=== PATIENT | female | born 1990 | race Caucasian/White ===

== ENCOUNTER → 2016-07-06 | Outpatient (REF) | payer BC | LOC: M LAB REF 17:02 | PROVIDERS: ATTEND Obstetrics & Gynecology | DX: Z12.4 Encounter for screening for malignant neoplasm of cervix (principal) ==

== ENCOUNTER → 2016-09-04 | Outpatient (REF) | payer BC | LOC: M LAB REF 17:18 | PROVIDERS: ATTEND Physician Assistant | DX: J06.9 Acute upper respiratory infection, unspecified (principal) ==

== ENCOUNTER 2017-02-22 14:45 | Outpatient (CLI) | payer BC ==
[~2017-02-22] VITALS: Ht 154.9 cm; Wt 84.5 kg
[2017-02-22] MEDS ORDERED: IBUP1TAB7 PO (15:56)
[2017-02-22] MEDS ORDERED: COPA1INJ SC (15:58)
[2017-02-22] MEDS ORDERED: methylPREDNISolone 1,000 MG, VIAL MATE ADAPTER 1 EACH in D5W 250 ML IV ONE (18:00)
== END 2017-02-22 16:50 | disposition home or self-care (01) ==
LOC: M INFU 14:45
PROVIDERS: ATTEND Internal Medicine
DX: G35 Multiple sclerosis (principal); Z79.899 Other long term (current) drug therapy
CPT/HCPCS: 96365; J2930

== ENCOUNTER 2017-02-23 14:59 | Outpatient (CLI) | payer BC ==
[~2017-02-23 14:59] MED LIST: COPA1INJ SC; IBUP1TAB7 PO; methylPREDNISolone 1,000 MG, VIAL MATE ADAPTER 1 EACH in D5W 250 ML IV ONE
== END 2017-02-23 16:30 | disposition home or self-care (01) ==
LOC: M INFU 14:59
PROVIDERS: ATTEND Psychiatry & Neurology Neurology
DX: G35 Multiple sclerosis (principal); Z79.899 Other long term (current) drug therapy
CPT/HCPCS: 96365; J2930

== ENCOUNTER 2017-02-24 13:52 | Outpatient (CLI) | payer BC ==
[~2017-02-24 13:52] MED LIST changes: -methylPREDNISolone 1,000 MG, VIAL MATE ADAPTER 1 EACH in D5W 250 ML IV ONE
[2017-02-24 14:00] VITALS: BP 143/85
[2017-02-24] MEDS ORDERED: methylPREDNISolone 1,000 MG, VIAL MATE ADAPTER 1 EACH in D5W 250 ML IV ONE (14:30)
== END 2017-02-24 15:45 | disposition home or self-care (01) ==
LOC: M OPCLIPED 13:52 → M PED 13:55 → M OPCLIPED 15:45
PROVIDERS: ATTEND Psychiatry & Neurology Neurology
DX: G35 Multiple sclerosis (principal); Z79.899 Other long term (current) drug therapy
CPT/HCPCS: 96374; J2930

== ENCOUNTER 2017-02-25 13:48 | Outpatient (CLI) | payer BC ==
[2017-02-25 14:15] VITALS: BP 127/70
[2017-02-25] MEDS ORDERED: methylPREDNISolone 1,000 MG, VIAL MATE ADAPTER 1 EACH in D5W 250 ML IV ONE (14:30)
== END 2017-02-25 15:35 | disposition home or self-care (01) ==
LOC: M OPCLIPED 13:48 → M PED 13:50 → M OPCLIPED 15:35
PROVIDERS: ATTEND Psychiatry & Neurology Neurology
DX: G35 Multiple sclerosis (principal); Z79.899 Other long term (current) drug therapy
CPT/HCPCS: 96374; J2930

== ENCOUNTER 2017-02-26 13:24 | Outpatient (CLI) | payer BC ==
[~2017-02-26] VITALS: Ht 154.9 cm; Wt 86.4 kg
[2017-02-26 13:40] VITALS: BP 129/75
[2017-02-26] MEDS ORDERED: methylPREDNISolone 1,000 MG, VIAL MATE ADAPTER 1 EACH in D5W 250 ML IV ONE (14:00)
== END 2017-02-26 15:15 | disposition home or self-care (01) ==
LOC: M OPCLIPED 13:24 → M PED 13:27 → M OPCLIPED 15:15
PROVIDERS: ATTEND Psychiatry & Neurology Neurology
DX: G35 Multiple sclerosis (principal); Z79.899 Other long term (current) drug therapy
CPT/HCPCS: 96365; J2930

== ENCOUNTER 2017-04-13 11:13 | Emergency (ER) | payer BC ==
[~2017-04-13] VITALS: Ht 154.9 cm; Wt 91.8 kg
[2017-04-13] MEDS ORDERED: NS 1,000 ML IV SCH (13:37)
[2017-04-13 14:28] VITALS: BP 121/77
== END 2017-04-13 14:54 | disposition home or self-care (01) ==
LOC: M ED 11:13
DX: T88.59XA Other complications of anesthesia, initial encounter (principal); E28.2 Polycystic ovarian syndrome; G35 Multiple sclerosis; Y83.8 Other surgical procedures as the cause of abnormal reaction of the patient, or of later complication, without mention of misadventure at the time of the procedure

== ENCOUNTER → 2017-04-13 | Outpatient (CLI) | payer BC ==
[2017-04-13 16:20] VITALS: BP 128/81
== END | disposition home or self-care (01) ==
LOC: M OROP 14:10
PROVIDERS: ATTEND Anesthesiology
DX: G97.1 Other reaction to spinal and lumbar puncture (principal)

== ENCOUNTER → 2017-07-30 | Outpatient (REF) | payer BC ==
[2017-07-30 14:22] LABS: INFLUENZA A AMPLIFICATION NEGATIVE (NEGATIVE); INFLUENZA B AMPLIFICATION NEGATIVE (NEGATIVE)
== END ==
LOC: M LAB REF 13:13
DX: J06.9 Acute upper respiratory infection, unspecified (principal)
CPT/HCPCS: 87502

== ENCOUNTER → 2017-12-31 | Outpatient (REF) | payer BC ==
[2017-12-31 18:20] LABS: BASO % 0.5 % (0.0-1.0); EOS # 0.5 10^3/uL (0.0-0.50); EOS % 6.3 % (0.0-3.0); HEMATOCRIT 39.1 % (36.0-47.0); HEMOGLOBIN 12.6 g/dl (12.0-15.5); IMMATURE GRANULOCYTE % 0.3 % (0-3.0); LYMPH # 0.6 10^3/uL (1.5-6.5); LYMPH % 7.5 % (24.0-44.0); MEAN CORPUSCULAR HGB CONC 32.2 g/dl (32.0-36.5); MEAN CORPUSCULAR VOLUME 90.1 fl (80.0-96.0); MONO # 0.8 10^3/uL (0.0-0.8); MONO % 10.9 % (0.0-5.0); NEUTROPHILS # 5.6 10^3/uL (1.8-7.7); NEUTROPHILS % 74.5 % (36.0-66.0); PLATELET COUNT, AUTOMATED 263 10^3/uL (150-450); RED BLOOD COUNT 4.34 10^6/uL (4.00-5.40); RED CELL DISTRIBUTION WIDTH 12.6 % (11.5-14.5); WHITE BLOOD COUNT 7.6 10^3/uL (4.0-10.0)
[2017-12-31 19:27] LABS: TOTAL 25(OH) VITAMIN D 20.5 NG/ML (30.0-100.0)
[2017-12-31 19:28] LABS: FOLATE 5.4 NG/ML; VITAMIN B12 LEVEL 467 PG/ML
[2017-12-31 19:56] LABS: ALBUMIN 3.4 GM/DL (3.2-5.2); ALBUMIN/GLOBULIN RATIO 0.89 (1.00-1.93); ALKALINE PHOSPHATASE 107 U/L (45-117); ALT/SGPT 25 U/L (12-78); ANION GAP 8 MEQ/L (8-16); AST/SGOT 15 U/L (7-37); BILIRUBIN,TOTAL 0.2 MG/DL (0.2-1.0); BLOOD UREA NITROGEN 13 MG/DL (7-18); CALCIUM LEVEL 8.6 MG/DL (8.5-10.1); CARBON DIOXIDE LEVEL 23 MEQ/L (21-32); CHLORIDE LEVEL 111 MEQ/L (98-107); GLOMERULAR FILTRATION RATE > 60.0 (>60); GLUCOSE, FASTING 76 MG/DL (70-100); POTASSIUM SERUM 4.1 MEQ/L (3.5-5.1); SODIUM LEVEL 142 MEQ/L (136-145); TOTAL PROTEIN 7.2 GM/DL (6.4-8.2)
[2018-01-09 12:01] LABS: JCV ANTIBODY Negative (.)
== END ==
LOC: M LABNEURO 13:24
DX: G35 Multiple sclerosis (principal)